=== PATIENT | female | born 1990 | race Caucasian/White ===

== ENCOUNTER → 2017-02-08 | Outpatient (CLI) | payer BC ==
[~2017-02-08] MED LIST: AZIT250T81 PO; ESCI5TAB PO; HYDR-3811 PO; NITR100C3 PO; ONDA4TAB41 PO; PRM25T PO; RANI-419 PO
[2017-02-08 11:30] VITALS: BP 131/84
--- NOTE | 2017-02-08 11:30 | Urgent Care T Sheet Gen (E) ---
Intake General Temperature (Fahrenheit): 97.7 Pulse: 92 Blood Pressure Systolic: 131 Blood Pressure Diastolic: 84 Respirations: 20 SPO2: 97 Description of Symptoms patient presents with illness since last night. States she developed a "sour stomach" around 7pm. Projectile vomiting started soon after. 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 1am was the last time she vomited. patient also notes watery diarrhea, which she still has. Abdomen is crampy. [place] feverish last night. Also notes heartburn for the past few days, which is unusual for her. Been taking Tums without relief. Took some Imodium last night without relief. Several co-workers are sick with similar symptoms. History of Present Illness Allergies: Coded Allergies: Penicillins (Verified Allergy, Unknown, 04/25/16) ciprofloxacin (Verified Allergy, Unknown, 04/25/16) Home Meds Active Scripts Nitrofurantoin Monohyd/M-Cryst (Macrobid 100 mg Capsule)100 Mg [id number] Mg PO BID Infection #14 CAP Ref 0 Prov:KIA HILL 08/08/16 Azithromycin (Zithromax Z-Jeremie)6 Tab/Pkt [id number] Mg PO SEE INSTRUCTIONS #6 TAB Ref 0 Day One: Take 2 tablets by mouth Days Two-Five: Take 1 tablet by mouth Prov:KIA IHLL 07/04/16 Promethazine Hcl (Phenergan)25 Mg Tab25 Mg PO Q6H PRN NAUSEA #30 TAB Ref 0 Prov:WILLIAM STEVENS DO 05/08/16 Hydrocodone/Acetaminophen ([place] 7.5mg/325mg)1 Ea Tablet1-2 Tab PO Q6H PRN PAIN #30 TAB Ref 0 Prov:WILLIAM STEVENS DO 05/08/16 Reported Medications Escitalopram Oxalate (Lexapro)5 Mg Tablet5 Mg PO DAILY 05/08/16 Respiratory Constitutional Symptoms: Fever Malaise EENTM: No symptoms reported Respiratory: No symptoms reported Cardiovascular: No symptoms reported Gastrointestinal/Abdominal: Abdominal pain Diarrhea Nausea Vomiting Other ( heart burn) All Other Systems Reviewed Remaining Systems: All other systems reviewed with negative findings Past Xesgkjj-Yvllas-Biqavx Hx Patient's Social History Alcohol Use: Denies Use Smoking Status: Never smoker Recent foreign travel: No Surgeries/Hospitalizations Hospitalization/Surgery Hx: sinus infections, ankle surgery Respiratory Respiratory History: None Cardiovascular Cardiovascular History: None Gastrointestinal GI/Endocrine History: None Diabetes Diabetes: No HEENT Impaired Vision: None Hearing Impaired: None Psychosocial Behavior Disorders: Depression Physical Exam Physical Exam General Appearance: WD/WN No apparent distress Eyes, Ears, Nose, Throat Ex: Pharynx normal (tongue is slightly dry) Neck Exam: SuppleNo Lymphadenopathy Respiratory Exam: Lungs clear Normal breath sounds Cardiovascular Exam: Regular rate, rhythm GI/ Exam: Abnormal bowel sound (hyperactive, ania in lower quadrants) Tenderness (LLQ)No Guarding, No Rebound Departure Urgent Care Impression Impression: Primary Impression: Gastroenteritis Departure Disposition: HOME OR SELF-CARE Condition: Stable Referrals: LAURITA CORTES MD (PCP) Additional Instructions: The patient appears to have gastroenteritis, which is most often viral. Will treat symptomatically. Rest. BRAT diet. Ice chips. Gatorade as able. I have started her on Zofran for nausea. I have also started her on Ranitidine for heartburn. Discouraged her from using Imodium as it may make her sicker longer. Watch for sings of dehydration. If any develop, such as dry mouth, dizziness, tachycardia, she is to present to the ER for IV fluids Return as needed Patient understands DC instructions. All questions were answered. Scripts Ondansetron HCl (Zofran)4 Mg Tablet4 Mg PO TID PRN NAUSEA #15 TAB Ref 0 Prov:KIA HILL 02/08/17 Ranitidine HCl 75 Mg [id number] Mg PO BID #14 TAB Prov:KIA HILL 02/08/17 End of report . KIA HILL February 08, 2017 11:30
== END ==
LOC: MHUC 10:55
PROVIDERS: ATTEND Physician Assistant
DX: K52.9 Noninfective gastroenteritis and colitis, unspecified (principal)
CPT/HCPCS: 99213